=== PATIENT | male | born 1950 | race Caucasian/White ===

== ENCOUNTER → 2016-07-14 | Outpatient (REF) | payer OTHER ==
[2016-07-14 13:02] LABS: ALBUMIN 3.3 GM/DL (3.2-5.2); ALBUMIN/GLOBULIN RATIO 0.89 (1.00-1.93); ALKALINE PHOSPHATASE 83 U/L (45-117); ALT/SGPT 22 U/L (12-78); ANION GAP 9 MEQ/L (8-16); AST/SGOT 20 U/L (15-37); BILIRUBIN,TOTAL 1.2 MG/DL (0.2-1.0); BLOOD UREA NITROGEN 23 MG/DL (7-18); CALCIUM LEVEL 8.6 MG/DL (8.8-10.2); CARBON DIOXIDE LEVEL 32 MEQ/L (21-32); CHLORIDE LEVEL 102 MEQ/L (98-107); CHOLESTEROL LEVEL 122 MG/DL (<200); CREATININE FOR GFR 1.08 MG/DL (0.70-1.30); GLOMERULAR FILTRATION RATE > 60.0 (>49); GLUCOSE, FASTING 88 MG/DL (80-110); POTASSIUM SERUM 4.5 MEQ/L (3.5-5.1); SODIUM LEVEL 143 MEQ/L (136-145); TRIGLYCERIDES LEVEL 48 MG/DL (<150)
== END ==
LOC: M SFHCPLAZ 09:17
PROVIDERS: ATTEND Nurse Practitioner Family
DX: I10 Essential (primary) hypertension (principal); E78.5 Hyperlipidemia, unspecified

== ENCOUNTER → 2016-08-29 | Outpatient (CLI) | payer OTHER ==
--- NOTE | 2016-08-29 10:46 | REP ---
LEFT HAND SERIES: Four views. HISTORY: Swelling of the left hand. FINDINGS: Four views of the left hand demonstrate overall normal mineralization. There is however a fairly extensive chondrocalcinosis noted at the radiocarpal articulation and to a lesser extent, in the intercarpal articulations. This is nonspecific finding and may be seen in degenerative joint disease, calcium pyrophosphate arthropathies, and other arthropathies. There is also some chondrocalcinosis about the 1st MCP joint. IP joint osteoarthritic spurring is seen at the thumb and early spurring is seen at the 1st [facility] joint. No erosive change is seen. There is a small cyst in the middle phalanx of the long finger at the PIP joint. There are minimal spurring changes at the PIP joints of the index, long and ring finger. IMPRESSION: Osteoarthritic changes and chondrocalcinosis. No acute bony abnormality. Signed by Basim Middleton MD 08/29/2016 01:59 P
== END ==
LOC: M RAD 09:53
PROVIDERS: ATTEND Family Medicine
DX: M11.242 Other chondrocalcinosis, left hand (principal); M19.042 Primary osteoarthritis, left hand

== ENCOUNTER → 2016-09-03 | Outpatient (CLI) | payer OTHER ==
--- NOTE | 2016-09-03 15:41 | REP ---
Chest two views HISTORY: Hypertension Comparison: 11/08/2015 The 2 cm parenchymal density is present in the medial right lower lobe. The left lung is clear. The cardiac silhouette is enlarged. The pulmonary vasculature is normal in appearance. The bony structure is intact. IMPRESSION: 1. There is a 2 cm parenchymal density in the the medial right lower lobe. CT of the chest is recommended for further evaluation. 2. Cardiomegaly. Signed by Chidi Bower MD 09/03/2016 03:32 P
== END ==
LOC: M ADAMS 15:11
PROVIDERS: ATTEND Family Medicine
DX: R60.0 Localized edema (principal); I10 Essential (primary) hypertension; I51.7 Cardiomegaly

== ENCOUNTER → 2016-09-03 | Outpatient (CLI) | payer OTHER ==
--- NOTE | 2016-09-04 22:03 | ECGEPIP ---
Stationary ECG Study [facility] Test Date: 2016-09-03 Pat Name: JANNETTE GIL Department: Room: - Gender: M Manager Vehicle: [facility] : 1950 Requested By: Parish Veag Order Number: [id number] Reading MD: Elvi Méndez Measurements Intervals [place] Rate: 78 P: -7 AK: 187 QRS: -48 QRSD: 146 T: 84 QT: 394 QTc: 449 Interpretive Statements SINUS RHYTHM MARKED LEFT AXIS DEVIATION LEFT BUNDLE BRANCH BLOCK NO PRIOR Electronically Signed On 09-04-2016 22:03:44 EDT by Elvi Méndez
== END ==
LOC: M EKG 15:57
PROVIDERS: ATTEND Family Medicine
DX: I10 Essential (primary) hypertension (principal); R60.0 Localized edema

== ENCOUNTER → 2016-09-11 | Outpatient (CLI) | payer OTHER ==
[~2016-09-11] MED LIST: ISOVUE-370 76% 100ML VIAL (Q9967) As Ordered ONE
--- NOTE | 2016-09-12 08:46 | REP ---
Clinical: Possible lung nodule. Technique: Axial contrast enhanced images from the thoracic inlet to the upper abdomen using 100 ml Isovue 370 intravenous contrast material with coronal and sagittal re-formations. Findings: The bilateral lung camarena are well-aerated and clear without pulmonary parenchymal consolidation, nodule or mass lesion. The vague suspected nodule along the medial aspect of the right lower lung on x-ray corresponds to a prominent but normal right pulmonary vein. No pleural effusion/reaction or pneumothorax. Tracheobronchial tree is patent. No adenopathy. Mediastinum demonstrates normal thoracic aorta, heart and pericardium. Surrounding musculoskeletal structures are normal. Impression: No acute mediastinal or pleuroparenchymal process. The veins suspected lesion by x-ray corresponds to a normal right pulmonary vein. Signed by Colin Morton MD 09/12/2016 08:38 A
== END ==
LOC: M RAD 18:14
PROVIDERS: ATTEND Family Medicine
DX: R91.8 Other nonspecific abnormal finding of lung field (principal)
CPT/HCPCS: 71260; Q9967

== ENCOUNTER → 2016-09-15 | Outpatient (CLI) | payer OTHER ==
--- NOTE | 2016-09-15 17:20 | ECHO ---
DATE OF PROCEDURE: 09/15/2016 REFERRING PHYSICIAN: Dr. Parish Vega INDICATION: Systemic hypertension, edema. HEIGHT 70 inches WEIGHT: 240 pounds MEASUREMENTS: Left atrium: 3.4 cm Aortic root: 2.9 cm Ventricle septum: 1.16 cm Posterior wall: 1.25 cm Left ventricle diastole: 4.2 cm Aortic annulus: 2.4 cm Inferior vena cava: 1.4 cm. DOPPLER MEASUREMENTS: Aortic valve velocity: 146 cm/s LVOT velocity: 114 cm/s LVOT VTI: 23.4 cm Mitral E velocity: 83.9 cm/s, Mitral A velocity: 103 cm/s Mitral deceleration time: 204 ms Trace pulmonic regurgitation. MITRAL ANNULAR TISSUE DOPPLER: E prime septal: 7.8 cm/s A prime septal: 10.8 cm/s DESCRIPTION: Rhythm was sinus. This is a moderately technically difficult echocardiogram. No pericardial effusion. CONCLUSIONS: 1. Normal left ventricle internal dimensions. There is shelby mild concentric left ventricle hypertrophy. No regional wall motion abnormality of the left ventricle. Normal LV systolic function. Left ventricle ejection fraction (LVEF) 60% by visual loss estimate . 2. Grade 1 left ventricle (LV) diastolic dysfunction (impaired relaxation filling pattern). Moderate partial fusion of the early rapid filling phase with the atrial filling phase at 74 beats per minute. 3. Mild aortic valve sclerosis of a three-cuspid aortic valve. 4. No coarctation of the aorta by continuous wave Doppler. 5. Moderate technically difficult echocardiogram.
== END ==
LOC: M CARPUL 09:34
PROVIDERS: ATTEND Family Medicine
DX: I10 Essential (primary) hypertension (principal)

== ENCOUNTER → 2016-12-09 | Outpatient (REF) | payer OTHER ==
[2016-12-09 20:30] LABS: ALBUMIN 2.9 GM/DL (3.2-5.2); ALBUMIN/GLOBULIN RATIO 0.74 (1.00-1.93); ALKALINE PHOSPHATASE 72 U/L (45-117); ALT/SGPT 16 U/L (12-78); ANION GAP 7 MEQ/L (8-16); AST/SGOT 12 U/L (15-37); BILIRUBIN,TOTAL 0.6 MG/DL (0.2-1.0); BLOOD UREA NITROGEN 24 MG/DL (7-18); CALCIUM LEVEL 8.7 MG/DL (8.8-10.2); CARBON DIOXIDE LEVEL 30 MEQ/L (21-32); CHLORIDE LEVEL 103 MEQ/L (98-107); CREATININE FOR GFR 0.87 MG/DL (0.70-1.30); FREE T4 1.33 NG/DL (0.76-1.46); GLOMERULAR FILTRATION RATE > 60.0 (>49); GLUCOSE, FASTING 93 MG/DL (80-110); POTASSIUM SERUM 4.4 MEQ/L (3.5-5.1); SODIUM LEVEL 140 MEQ/L (136-145); TOTAL PROTEIN 6.8 GM/DL (6.4-8.2)
[2016-12-09 20:35] LABS: MEAN CORPUSCULAR HEMOGLOBIN 28.5 pg (27.0-33.0); MEAN CORPUSCULAR HGB CONC 32.4 g/dl (32.0-36.5); MEAN CORPUSCULAR VOLUME 87.9 fl (80.0-96.0); RED CELL DISTRIBUTION WIDTH 14.2 % (11.5-14.5); WHITE BLOOD COUNT 8.5 K/mm3 (4.0-10.0)
== END ==
LOC: M SFHCADAM 11:18
PROVIDERS: ATTEND Family Medicine
DX: M19.90 Unspecified osteoarthritis, unspecified site (principal)

== ENCOUNTER → 2017-04-27 | Outpatient (CLI) | payer OTHER ==
[~2017-04-27] MED LIST changes: +ASPI81TA85 PO; +ATOR1TAB21 PO; +FURO20TA2 PO; -ISOVUE-370 76% 100ML VIAL (Q9967) As Ordered ONE; +MELO15TA4 PO; +MULT1TAB10 PO; +RAMI10CA PO
[2017-04-27 18:44] LABS: ANION GAP 4 MEQ/L (8-16); BLOOD UREA NITROGEN 27 MG/DL (7-18); CALCIUM LEVEL 8.4 MG/DL (8.8-10.2); CARBON DIOXIDE LEVEL 32 MEQ/L (21-32); CHLORIDE LEVEL 108 MEQ/L (98-107); CREATININE FOR GFR 0.91 MG/DL (0.70-1.30); GLOMERULAR FILTRATION RATE > 60.0 (>49); GLUCOSE, FASTING 99 MG/DL (80-110); SODIUM LEVEL 144 MEQ/L (136-145)
[2017-04-27 19:23] LABS: MEAN CORPUSCULAR HEMOGLOBIN 28.6 pg (27.0-33.0); MEAN CORPUSCULAR HGB CONC 31.8 g/dl (32.0-36.5); PLATELET COUNT, AUTOMATED 263 10^3/uL (150-450); RED CELL DISTRIBUTION WIDTH 14.9 % (11.5-14.5); WHITE BLOOD COUNT 6.1 10^3/uL (4.0-10.0)
[2017-04-27 19:25] LABS: INR 0.94
--- NOTE | 2017-04-27 20:10 | REP ---
CHEST PA AND LATERAL: 04/27/2017. Clinical history: Cardiomegaly. Preprocedural exam. Findings: Compared to prior. There is cardiomegaly with left atrial and ventricular enlargement, similar to previous study. I do not see pulmonary edema. There is no pleural effusion or acute infiltrate. The aorta is mildly tortuous and calcified without aneurysm. Airway intact. No mediastinal or hilar mass. Bony thorax shows no acute compression deformity. Impression: 1. Cardiomegaly without pulmonary edema, pleural effusion or acute infiltrate. Left atrial and left ventricular enlargement noted similar to previous study. Signed by Juan A Hernández MD 04/28/2017 11:51 A
== END ==
LOC: M LAB 17:35
PROVIDERS: ATTEND Urology
DX: Z01.818 Encounter for other preprocedural examination (principal); N48.1 Balanitis

== ENCOUNTER → 2017-05-01 | Outpatient (REF) | payer OTHER ==
[~2017-05-01] MED LIST changes: +BACT800T5 PO; +TYLE650T35 PO
== END ==
LOC: M LABSMT 14:51
PROVIDERS: ATTEND Urology
DX: Z01.818 Encounter for other preprocedural examination (principal); N48.1 Balanitis

== ENCOUNTER 2017-05-06 10:44 | Day surgery (SDC) | payer OTHER ==
[~2017-05-06] VITALS: Ht 177.8 cm; Wt 111.6 kg
[~2017-05-06 10:44] MED LIST changes: -BACT800T5 PO; -TYLE650T35 PO
[2017-05-06] MEDS ORDERED: LR 1,000 ML IV ONE (11:00)
[2017-05-06] MEDS ORDERED: ONDANSETRON 4MG/2ML VIAL (J2405) As Ordered ONE (11:42)
[2017-05-06] MEDS ORDERED: fentaNYL 100 MCG/2 ML INJECTION (J3010) As Ordered ONE (11:42)
[2017-05-06] MEDS ORDERED: KETOROLAC 60 MG/2 ML VIAL (J1885) As Ordered ONE (11:42)
[2017-05-06] MEDS ORDERED: LIDOCAINE 2% INJ 100 MG/5 ML SDV (FOR ANES.) As Ordered ONE (11:42)
[2017-05-06] MEDS ORDERED: MIDAZOLAM INJ 2 MG/2 ML VIAL (J2250) As Ordered ONE (11:42)
[2017-05-06] MEDS ORDERED: PROPOFOL 200 MG/20 ML VIAL As Ordered ONE ×2 (11:42→13:40)
[2017-05-06] MEDS ORDERED: dexameTHASONE 4 MG/ML 1ML VIAL (J1100) As Ordered ONE ×3 (11:42→13:38)
[2017-05-06] MEDS ORDERED: BUPIVACAINE HCL 0.25% 30 ML VIAL As Ordered ONE (12:32)
[2017-05-06] MEDS ORDERED: LIDOCAINE 1% MDV 20ML VIAL As Ordered ONE (12:32)
[2017-05-06] MEDS ORDERED: BACITRACIN OINT 30GM As Ordered ONE (12:32)
[2017-05-06] MEDS ORDERED: ESMOLOL INJ 100MG/10ML VIAL As Ordered ONE (13:10)
[2017-05-06] MEDS ORDERED: METOCLOPRAMIDE INJ 10MG/2ML VIAL (J2765) As Ordered ONE (13:36)
[2017-05-06] MEDS ORDERED: TYLE650T35 PO (14:04)
[2017-05-06] MEDS ORDERED: BACT800T5 PO (14:04)
[2017-05-06] MEDS ORDERED: LR 1,000 ML IV SCH (14:30)
[2017-05-06] MEDS ORDERED: ONDANSETRON 4MG/2ML VIAL (J2405) IV PRN (14:30)
[2017-05-06] MEDS ORDERED: fentaNYL 100 MCG/2 ML INJECTION (J3010) IV PRN (14:30)
[2017-05-06] MEDS ORDERED: ACETAMINOPHEN 650MG ER TAB (TYLENOL ARTHRITIS) PO PRN (14:30)
[2017-05-06 15:30] VITALS: BP 156/77
[2017-05-06] MEDS ORDERED: BACTRIM 160MG/800MG DS TAB PO SCH (21:00)
--- NOTE | 2017-05-07 09:28 | RO ---
DATE OF PROCEDURE: 05/06/2017 PREPROCEDURE DIAGNOSIS: Penile lesion plus phimosis. POSTPROCEDURE DIAGNOSIS: Penile lesion plus phimosis. FINDINGS: Flat lesion in the glans of the penis about 1 cm in diameter plus phimosis. PROCEDURE: Circumcision plus penile punch biopsies times two. SURGEON: Alphonso Miranda MD EARLY YEARS TEACHER: None. ANESTHESIA: General. COMPLICATIONS: None. ESTIMATED BLOOD LOSS: N/A, minimal. HISTORY OF THE PRESENT ILLNESS: A 67-year-old male patient who has a persistent penile lesion about 1 cm in the glans of the penis, flat lesion and also has difficulty retracting the foreskin. For this reason, and the reason that he has recurrent balanitis, we have consented him for circumcision plus penile punch biopsy. DESCRIPTION OF PROCEDURE: In a patient under general anesthesia in supine position, after prepping and draping the area of concern, which included the entire genitalia and abdomen, we started by doing an incision 1 cm from the sulcus of the glans, circumferential incision and then 3 cm more proximal to the base, we did another circumferential incision, and we excised the foreskin between both incisions. We then fulgurated bleeding vessels and sutured back together the borders of the incisions with catgut chromic #3-0 in separate stitches. The foreskin was sent for permanent pathology analysis. We then identified the lesion in the sulcus of the glans on the right side, about 1 cm, and we did two punch biopsies at that area, sent it for permanent pathology analysis. We also closed those punch biopsies with catgut chromic #3-0. We then placed bacitracin cream on top of the wound and wrapped the penis with a Coban and prior to this, a Kerlix roll. PLAN: The patient will go home today with antibiotic and Tylenol for pain. He will followup in 5 days for removal of the Coban. He may shower in 3 days. No sex for 1 month. There were no complications.
== END 2017-05-06 15:47 | disposition home or self-care (01) ==
LOC: M SDC 10:44
PROVIDERS: ATTEND Urology
DX: N47.1 Phimosis (principal); N50.9 Disorder of male genital organs, unspecified; I10 Essential (primary) hypertension; E78.5 Hyperlipidemia, unspecified; M10.9 Gout, unspecified; G47.30 Sleep apnea, unspecified; Z79.899 Other long term (current) drug therapy; Z79.82 Long term (current) use of aspirin
CPT/HCPCS: 36415; 54100; 54161; 86850; 86900; 86901; 88304; 88305; J1100; J1885; J2250; J2405; J2765; J3010

== ENCOUNTER → 2017-10-08 | Outpatient (CLI) | payer OTHER | LOC: M SMT 10:23 | DX: Z85.528 Personal history of other malignant neoplasm of kidney (principal) ==

== ENCOUNTER → 2018-02-01 | Outpatient (CLI) | payer OTHER ==
[2018-02-01 12:56] LABS: HEMOGLOBIN 13.3 g/dl (13.5-17.5); MEAN CORPUSCULAR HEMOGLOBIN 29.6 pg (27.0-33.0); MEAN CORPUSCULAR HGB CONC 32.4 g/dl (32.0-36.5); MEAN CORPUSCULAR VOLUME 91.3 fl (80.0-96.0); PLATELET COUNT, AUTOMATED 262 10^3/uL (150-450); RED BLOOD COUNT 4.49 10^6/uL (4.30-6.10); RED CELL DISTRIBUTION WIDTH 13.3 % (11.5-14.5)
== END ==
LOC: M LAB 11:03
DX: K62.5 Hemorrhage of anus and rectum (principal)
CPT/HCPCS: 85027

== ENCOUNTER → 2018-07-05 | Outpatient (CLI) | payer OTHER ==
[~2018-07-05] MED LIST changes: +BACT800T5 PO; +GLUCAGON FOR INJ 1 MG VIAL (J1610) As Ordered ONE; +ISOVUE-370 76% 100ML VIAL (Q9967) As Ordered ONE; +MELO15TA28 PO; -MELO15TA4 PO; -RAMI10CA PO; +RAMI1CAP26 PO; +TYLE650T35 PO; +VoLumen 0.1% SUSPENSION 450ML BOTTLE As Ordered ONE
--- NOTE | 2018-07-05 20:46 | REP ---
Clinical: Abdominal pain with history of iron deficiency anemia. Technique: Contrast enhanced images from the lung bases to the pubic symphysis using 75 ml Isovue 370 intravenous contrast material with images obtained in arterial and portal venous phases of enhancement along with coronal and sagittal re-formations. Comparison: 09/06/2008 Findings: Liver includes few scattered subcentimeter hypodensities likely representing cysts. Spleen, pancreas, left adrenal gland and kidney are normal. The patient is noted to be status post right nephrectomy. Cholelithiasis noted without evidence for acute cholecystitis. The enteric system is without obstruction or obvious acute inflammatory process. Normal terminal ileum and appendix are identified in the right lower quadrant. Few scattered sigmoid diverticula noted without acute diverticulitis. Pelvis demonstrates normal bladder and age-appropriate prostate/seminal vesicles. No pelvic fluid or ascites. No adenopathy. No free air. Abdominal aorta and vasculature appears normal. Musculoskeletal structures demonstrate age-related degenerative changes. Impression: 1. Cholelithiasis. 2. Few scattered subcentimeter hypodensities likely representing small cysts. 3. Scattered sigmoid diverticula without acute diverticulitis. No further enterocolonic pathology appreciated. 4. Evidence of prior right nephrectomy for renal cell carcinoma. No evidence for recurrence, metastasis, adenopathy. Electronically Signed by Colin Morton MD 07/05/2018 08:37 P
== END ==
LOC: M RAD 08:32
PROVIDERS: ATTEND Physician Assistant Medical
DX: D50.9 Iron deficiency anemia, unspecified (principal); K62.5 Hemorrhage of anus and rectum
CPT/HCPCS: 74177; J1610; Q9967

== ENCOUNTER 2018-08-05 09:14 | Day surgery (SDC) | payer OTHER ==
[~2018-08-05] VITALS: Ht 182.9 cm; Wt 107.0 kg
[~2018-08-05 09:14] MED LIST changes: -GLUCAGON FOR INJ 1 MG VIAL (J1610) As Ordered ONE; -ISOVUE-370 76% 100ML VIAL (Q9967) As Ordered ONE; -VoLumen 0.1% SUSPENSION 450ML BOTTLE As Ordered ONE
[2018-08-05] MEDS ORDERED: NS 1,000 ML IV ONE (11:00)
[2018-08-05] MEDS ORDERED: PROPOFOL 200 MG/20 ML VIAL As Ordered ONE (11:14)
[2018-08-05] MEDS ORDERED: LIDOCAINE 2% INJ 100 MG/5 ML SDV (FOR ANES.) As Ordered ONE (11:14)
[2018-08-05] MEDS ORDERED: fentaNYL 100 MCG/2 ML INJECTION (J3010) As Ordered ONE (11:46)
--- NOTE | 2018-08-05 11:56 | ROOR ---
Patient Name: Lee Kumar Procedure Date: 08/05/2018 11:43 AM Date of : 1950 Age: 68 Room: [facility] Gender: Male Note Status: Finalized Procedure: Upper GI endoscopy Indications: Iron deficiency anemia Providers: Wally SEN MD Referring MD: Parish Vega MD Requesting Provider: Medicines: Monitored Anesthesia Care Complications: No immediate complications. Procedure: Pre-Anesthesia Assessment: - The heart rate, respiratory rate, oxygen saturations, blood pressure, adequacy of pulmonary ventilation, and response to care were monitored throughout the procedure. The Endoscope was introduced through the mouth, and advanced to the second part of duodenum. The upper GI endoscopy was accomplished without difficulty. The patient tolerated the procedure well. Findings: The examined esophagus was normal. Small Hiatal Hernia. The entire examined stomach was normal. The examined duodenum was normal. Biopsies for histology were taken with a cold forceps for evaluation of celiac disease. Impression: - Normal esophagus. - Small Hiatal Hernia. - Normal stomach. - Normal examined duodenum. Biopsied. Recommendation: - Perform a colonoscopy today. Wally Sen MD Wally SEN MD 08/05/2018 11:56:00 AM This report has been signed electronically. Number of Addenda: 0 Note Initiated On: 08/05/2018 11:43 AM Estimated Blood Loss: Estimated blood loss: none.
--- NOTE | 2018-08-05 12:35 | ROOR ---
Patient Name: Lee Kumar Procedure Date: 08/05/2018 11:44 AM Date of : 1950 Age: 68 Room: [facility] Gender: Male Note Status: Finalized Procedure: Colonoscopy Indications: Hematochezia, Iron deficiency anemia Providers: Wally SEN MD Referring MD: Parish Vega MD Requesting Provider: Medicines: Monitored Anesthesia Care Complications: No immediate complications. Procedure: Pre-Anesthesia Assessment: - The heart rate, respiratory rate, oxygen saturations, blood pressure, adequacy of pulmonary ventilation, and response to care were monitored throughout the procedure. The Colonoscope was introduced through the anus and advanced to 5 cm into the ileum. The colonoscopy was technically difficult and complex due to a redundant colon. Successful completion of the procedure was aided by changing the patient's position, using manual pressure and straightening and shortening the scope to obtain bowel loop reduction. The patient tolerated the procedure well. The quality of the bowel preparation was good. Findings: The perianal and digital rectal examinations were normal. Two sessile polyps were found in the transverse colon. The polyps were 3 to 5 mm in size. These polyps were removed with a cold snare. Resection and retrieval were complete. Internal hemorrhoids were found during retroflexion. The hemorrhoids were large. The exam was otherwise without abnormality on direct and retroflexion views. Impression: - Two 3 to 5 mm polyps in the transverse colon, removed with a cold snare. Resected and retrieved. - Moderate to large Internal hemorrhoids. - The colon examination was otherwise normal on direct and retroflexion views. Recommendation: - Repeat colonoscopy in 5 years for surveillance. Wally Sen MD Wally SEN MD 08/05/2018 12:35:14 PM This report has been signed electronically. Number of Addenda: 0 Note Initiated On: 08/05/2018 11:44 AM Estimated Blood Loss: Estimated blood loss: none.
[2018-08-05 12:55] VITALS: BP 139/73
== END 2018-08-05 13:07 | disposition home or self-care (01) ==
LOC: M OPP 09:14
PROVIDERS: ATTEND Internal Medicine Gastroenterology
DX: K92.1 Melena (principal); D50.9 Iron deficiency anemia, unspecified; Z86.010 Personal history of colon polyps; D12.3 Benign neoplasm of transverse colon; K64.8 Other hemorrhoids; K44.9 Diaphragmatic hernia without obstruction or gangrene; G47.30 Sleep apnea, unspecified; I10 Essential (primary) hypertension; E78.00 Pure hypercholesterolemia, unspecified; Z79.899 Other long term (current) drug therapy; Z85.528 Personal history of other malignant neoplasm of kidney; Z80.42 Family history of malignant neoplasm of prostate
CPT/HCPCS: 43239; 45385; 88305; J3010

== ENCOUNTER → 2018-12-15 | Outpatient (CLI) | payer OTHER ==
--- NOTE | 2018-12-17 20:54 | SLEEPCENT ---
DATE OF PROCEDURE: 12/15/2018 ORDERED BY: STEPHANIE Walsh Nocturnal polysomnography was performed for evaluation of sleep physiology in this patient with a history of snoring and nonrestorative sleep. 6 hours and 47 minutes of data were reviewed. There were 295 minutes of sleep identified. Sleep latency was normal at 25.5 minutes. Rapid eye movement (REM) latency was normal at 111.5 minutes. Sleep architecture showed fragmentation. There were three rapid eye movement (REM) cycles noted. Overall sleep efficiency was 75.4%. The patient's electrocardiogram showed a sinus rhythm with wide complexes, average heart rate 68 beats per minute. EEG showed reasonably normal waveforms for awake and sleep. There were 283 respiratory events identified of 10 seconds in duration or greater for an apnea-hypopnea index of 57.5. The events were primarily obstructive, not exclusive to sleep stage nor body posture. Arousals from respiratory events occurred 4.7 times per hour and oxygen desaturations were seen into the 70s. There was some activity in the limb leads but limb movement arousal index was only 3.5. IMPRESSION: Severe obstructive sleep apnea syndrome (G47.33). Apnea-hypopnea index 57.5. RECOMMENDATIONS: The patient should be encouraged to return to the sleep disorder center for pressure therapy. In the interval, alcohol and sedative avoidance should be practiced and caution exercised during the operation of motor vehicles.
== END ==
LOC: M SLEEP 19:06
PROVIDERS: ATTEND Nurse Practitioner Family
DX: R06.83 Snoring (principal)

== ENCOUNTER → 2019-01-06 | Outpatient (CLI) | payer OTHER ==
--- NOTE | 2019-01-12 09:18 | SLEEPCENT ---
DATE OF PROCEDURE: ORDERING PROVIDER: FLORIN Walsh, copy to Dr. Vega. INTERPRETATION: Nocturnal polysomnography was performed for the titration of pressure therapy in this patient with obstructive sleep apnea syndrome. Apnea-hypopnea index 57.5. For testing a [employer] full-face mask of medium size was used 4 cm of water pressure applied to the circuit and the lights were extinguished. 7 hours and 57 minutes of data were reviewed. There 385 minutes of sleep identified. Sleep latency was normal at 30.5 minutes. Rapid eye movement (REM) latency was short at 68 minutes. Sleep architecture was good. There were four REM cycles. Overall sleep efficiency 82.2%. The patient's electrocardiogram showed sinus rhythm with an average heart rate of 60 beats per minute. EEG showed normal waveforms for awake and sleep. Respiratory events were fully palliated with CPAP at a pressure +12. There were some persistent limb activity. Limb movement arousal index on this occasion was up from the diagnostic night of 25.7. IMPRESSION: 1. Obstructive sleep apnea syndrome (G47.33) pressure. 2. Possible periodic limb movement disorder (G47.61). Limb movement arousal index 25.7. RECOMMENDATIONS: Nightly use of pressure therapy at 12 cm of water should be sufficient to address the patient's respiratory events. If sleep symptoms persist interventions to reduce the frequency arousal from limb activity may also be helpful.
== END ==
LOC: M SLEEP 19:20
PROVIDERS: ATTEND Nurse Practitioner Family
DX: G47.33 Obstructive sleep apnea (adult) (pediatric) (principal); G47.61 Periodic limb movement disorder

== ENCOUNTER → 2019-03-07 | Outpatient (REF) | payer OTHER ==
[2019-03-07 16:43] LABS: ALBUMIN 3.2 GM/DL (3.2-5.2); ALT/SGPT 19 U/L (12-78); BILIRUBIN,TOTAL 0.7 MG/DL (0.2-1.0); BLOOD UREA NITROGEN 30 MG/DL (7-18); CALCIUM LEVEL 8.8 MG/DL (8.8-10.2); CARBON DIOXIDE LEVEL 30 MEQ/L (21-32); CHLORIDE LEVEL 107 MEQ/L (98-107); CHOLESTEROL LEVEL 130 MG/DL (<200); CHOLESTEROL RISK RATIO 2.549 (<5); CREATININE FOR GFR 1.01 MG/DL (0.70-1.30); FERRITIN 83 NG/ML (26-388); GLOMERULAR FILTRATION RATE > 60.0 (>42); GLUCOSE, FASTING 90 MG/DL (70-100); HDL CHOLESTEROL 51 MG/DL (>40); IRON (FE) 42 UG/DL (65-175); LDL CHOLESTEROL 70 MG/DL (<100); NON-HDL-C 79 MG/DL; PERCENT SATURATION 13.3 % (19.7-50.0); POTASSIUM SERUM 4.7 MEQ/L (3.5-5.1); SODIUM LEVEL 142 MEQ/L (136-145); TOTAL IRON BINDING CAPACITY 315 UG/DL (250-450); TOTAL PROTEIN 6.8 GM/DL (6.4-8.2); TRIGLYCERIDES LEVEL 43 MG/DL (<150)
[2019-03-07 16:51] LABS: HEMATOCRIT 40.4 % (42.0-52.0); HEMOGLOBIN 12.9 g/dl (13.5-17.5); MEAN CORPUSCULAR HEMOGLOBIN 30.4 pg (27.0-33.0); MEAN CORPUSCULAR HGB CONC 31.9 g/dl (32.0-36.5); MEAN CORPUSCULAR VOLUME 95.1 fl (80.0-96.0); PLATELET COUNT, AUTOMATED 248 10^3/uL (150-450); RED BLOOD COUNT 4.25 10^6/uL (4.30-6.10); WHITE BLOOD COUNT 6.5 10^3/uL (4.0-10.0)
[2019-03-07 16:53] LABS: APPEARANCE, URINE CLEAR (CLEAR); BACTERIA, URINE AUTO NEGATIVE (NEGATIVE); BILIRUBIN, URINE AUTO NEGATIVE (NEGATIVE); BLOOD, URINE BLOOD NEGATIVE (NEGATIVE); COLOR, URINE YELLOW (YELLOW); GLUCOSE, URINE (UA) AUTO NEGATIVE (NEGATIVE); KETONE, URINE AUTO NEGATIVE (NEGATIVE); LEUKOCYTE ESTERASE, URINE AUTO NEGATIVE (NEGATIVE); MUCUS, URINE SMALL (NEGATIVE); NITRITE, URINE AUTO NEGATIVE (NEGATIVE); PROTEIN, URINE AUTO NEGATIVE (NEGATIVE); RBC, URINE AUTO 0 /HPF (0-3); SPECIFIC GRAVITY URINE AUTO 1.023 (1.002-1.035); SQUAMOUS EPITHELIAL CELL UR AU 0 /HPF (0-6); UROBILINOGEN, URINE AUTO 0.2 mg/dL (0.0-2.0); WBC, URINE AUTO 0 /HPF (0-3)
== END ==
LOC: M SFHCCLAY 09:51
PROVIDERS: ATTEND Family Medicine
DX: Z12.5 Encounter for screening for malignant neoplasm of prostate (principal); Z85.528 Personal history of other malignant neoplasm of kidney; E78.5 Hyperlipidemia, unspecified; D50.9 Iron deficiency anemia, unspecified
CPT/HCPCS: 80053; 80061; 81001; 82728; 83550; 85027; 85046; 87086; G0103

== ENCOUNTER → 2019-03-23 | Outpatient (CLI) | payer OTHER ==
--- NOTE | 2019-03-23 10:35 | REP ---
RENAL ULTRASOUND: Real-time sonographic evaluation of the left kidney was performed in this patient who has had a prior right nephrectomy. The left kidney is normal in size and echotexture measuring 12.4 x 6.4 x 7.4 cm. There is no hydronephrosis. There is no evidence of renal mass. Study is somewhat limited due to bowel gas and body habitus. Incidental node of made of multiple gallstones in the gallbladder. Urinary bladder is mildly distended. A left ureteral jet is visualized with Doppler color evaluation. IMPRESSION: Unremarkable appearance of left kidney in this patient status-post right nephrectomy. Gallstones incidentally noted in the gallbladder. Electronically Signed by Federico Baugh MD 03/23/2019 06:22 P
== END ==
LOC: M RAD 09:18
PROVIDERS: ATTEND Nurse Practitioner Women's Health
DX: Z85.528 Personal history of other malignant neoplasm of kidney (principal); K80.20 Calculus of gallbladder without cholecystitis without obstruction

== ENCOUNTER → 2020-01-31 | Outpatient (REF) | payer OTHER ==
[~2020-01-31] MED LIST changes: +ACET650T61 PO; -ASPI81TA85 PO; +ASPI81TA86 PO; -TYLE650T35 PO
[2020-03-28 13:48] LABS: ALBUMIN 3.3 GM/DL (3.2-5.2); ALT/SGPT 17 U/L (12-78); BILIRUBIN,TOTAL 0.8 MG/DL (0.2-1.0); BLOOD UREA NITROGEN 24 MG/DL (7-18); CALCIUM LEVEL 8.8 MG/DL (8.8-10.2); CARBON DIOXIDE LEVEL 31 MEQ/L (21-32); CHLORIDE LEVEL 107 MEQ/L (98-107); CHOLESTEROL LEVEL 119 MG/DL (<200); CHOLESTEROL RISK RATIO 2.531 (<5); CREATININE FOR GFR 1.13 MG/DL (0.70-1.30); GLOMERULAR FILTRATION RATE > 60.0 (>42); GLUCOSE, FASTING 97 MG/DL (70-100); HDL CHOLESTEROL 47 MG/DL (>40); LDL CHOLESTEROL 61 MG/DL (<100); NON-HDL-C 72 MG/DL; SODIUM LEVEL 140 MEQ/L (136-145); TOTAL PROTEIN 6.8 GM/DL (6.4-8.2); TRIGLYCERIDES LEVEL 57 MG/DL (<150)
== END ==
LOC: M SFHCADAM 11:35
PROVIDERS: ATTEND Family Medicine
DX: I11.9 Hypertensive heart disease without heart failure (principal); E78.5 Hyperlipidemia, unspecified

== ENCOUNTER → 2020-04-11 | Outpatient (REF) | payer OTHER | LOC: M SFHCCLAY 11:11 | PROVIDERS: ATTEND Urology | DX: Z12.5 Encounter for screening for malignant neoplasm of prostate (principal) ==

== ENCOUNTER → 2020-08-01 | Outpatient (REF) | payer OTHER ==
[2020-08-01 16:44] LABS: ALBUMIN 3.6 GM/DL (3.2-5.2); ALT/SGPT 24 U/L (12-78); BLOOD UREA NITROGEN 26 MG/DL (7-18); CALCIUM LEVEL 8.7 MG/DL (8.8-10.2); CARBON DIOXIDE LEVEL 30 MEQ/L (21-32); CHLORIDE LEVEL 105 MEQ/L (98-107); CHOLESTEROL LEVEL 136 MG/DL (<200); CREATININE FOR GFR 1.06 MG/DL (0.70-1.30); GLOMERULAR FILTRATION RATE > 60.0 (>42); GLUCOSE, FASTING 105 MG/DL (70-100); HDL CHOLESTEROL 50 MG/DL (>40); LDL CHOLESTEROL 71 MG/DL (<100); NON-HDL-C 86 MG/DL; POTASSIUM SERUM 4.9 MEQ/L (3.5-5.1); SODIUM LEVEL 141 MEQ/L (136-145); TOTAL PROTEIN 6.9 GM/DL (6.4-8.2); TRIGLYCERIDES LEVEL 74 MG/DL (<150)
[2020-08-01 17:12] LABS: HEMOGLOBIN A1c 5.7 %
== END ==
LOC: M SFHCCLAY 10:46
PROVIDERS: ATTEND Family Medicine
DX: I10 Essential (primary) hypertension (principal); R73.01 Impaired fasting glucose; E78.5 Hyperlipidemia, unspecified

== ENCOUNTER → 2021-07-15 | Outpatient (REF) | payer MEDICARE ==
[2021-07-15 16:37] LABS: HEMATOCRIT 43.1 % (42.0-52.0); HEMOGLOBIN 13.6 g/dl (13.5-17.5); MEAN CORPUSCULAR HEMOGLOBIN 29.1 pg (27.0-33.0); MEAN CORPUSCULAR HGB CONC 31.6 g/dl (32.0-36.5); MEAN CORPUSCULAR VOLUME 92.3 fl (80.0-96.0); PLATELET COUNT, AUTOMATED 277 10^3/uL (150-450); RED BLOOD COUNT 4.67 10^6/uL (4.30-6.10); WHITE BLOOD COUNT 8.4 10^3/uL (4.0-10.0)
[2021-07-15 16:57] LABS: ALBUMIN 3.4 GM/DL (3.2-5.2); ALT/SGPT 20 U/L (12-78); BILIRUBIN,TOTAL 0.7 MG/DL (0.2-1.0); BLOOD UREA NITROGEN 28 MG/DL (7-18); CALCIUM LEVEL 8.8 MG/DL (8.8-10.2); CARBON DIOXIDE LEVEL 30 MEQ/L (21-32); CHLORIDE LEVEL 107 MEQ/L (98-107); CHOLESTEROL LEVEL 122 MG/DL (<200); CHOLESTEROL RISK RATIO 2.392 (<5); CREATININE FOR GFR 1.08 MG/DL (0.70-1.30); GLOMERULAR FILTRATION RATE > 60.0 (>42); GLUCOSE, FASTING 102 MG/DL (70-100); HDL CHOLESTEROL 51 MG/DL (>40); LDL CHOLESTEROL 62 MG/DL (<100); NON-HDL-C 71 MG/DL; POTASSIUM SERUM 4.9 MEQ/L (3.5-5.1); SODIUM LEVEL 141 MEQ/L (136-145); TOTAL PROTEIN 7.1 GM/DL (6.4-8.2); TRIGLYCERIDES LEVEL 45 MG/DL (<150)
[2021-07-15 17:22] LABS: HEMOGLOBIN A1c 5.7 %
== END ==
LOC: M SFHCCLAY 09:36
PROVIDERS: ATTEND Family Medicine
DX: E78.5 Hyperlipidemia, unspecified (principal); R73.01 Impaired fasting glucose; Z12.5 Encounter for screening for malignant neoplasm of prostate
CPT/HCPCS: 80053; 80061; 83036; 85027; G0103

== ENCOUNTER → 2022-02-10 | Outpatient (REF) | payer MEDICARE, OTHER ==
[2022-02-10 17:23] LABS: HEMATOCRIT 40.2 % (42.0-52.0); HEMOGLOBIN 12.5 g/dl (13.5-17.5); MEAN CORPUSCULAR HEMOGLOBIN 29.1 pg (27.0-33.0); MEAN CORPUSCULAR HGB CONC 31.1 g/dl (32.0-36.5); MEAN CORPUSCULAR VOLUME 93.5 fl (80.0-96.0); PLATELET COUNT, AUTOMATED 258 10^3/uL (150-450); WHITE BLOOD COUNT 6.9 10^3/uL (4.0-10.0)
[2022-02-10 18:29] LABS: ALBUMIN 2.9 GM/DL (3.2-5.2); ALT/SGPT 21 U/L (12-78); BILIRUBIN,TOTAL 1.1 MG/DL (0.2-1.0); BLOOD UREA NITROGEN 25 MG/DL (7-18); CALCIUM LEVEL 8.4 MG/DL (8.8-10.2); CARBON DIOXIDE LEVEL 30 MEQ/L (21-32); CHLORIDE LEVEL 105 MEQ/L (98-107); CHOLESTEROL LEVEL 125 MG/DL (<200); CREATININE FOR GFR 0.94 MG/DL (0.70-1.30); FERRITIN 89 NG/ML (26-388); GLOMERULAR FILTRATION RATE > 60.0 (>42); GLUCOSE, FASTING 99 MG/DL (70-100); HDL CHOLESTEROL 51 MG/DL (>40); IRON (FE) 54 UG/DL (65-175); LDL CHOLESTEROL 65 MG/DL (<100); NON-HDL-C 74 MG/DL; PERCENT SATURATION 20.4 % (19.7-50.0); POTASSIUM SERUM 4.5 MEQ/L (3.5-5.1); SODIUM LEVEL 138 MEQ/L (136-145); TOTAL IRON BINDING CAPACITY 265 UG/DL (250-450); TOTAL PROTEIN 6.5 GM/DL (6.4-8.2); TRIGLYCERIDES LEVEL 44 MG/DL (<150)
[2022-02-10 21:03] LABS: HEMOGLOBIN A1c 5.7 %
== END ==
LOC: M SFHCCLAY 10:42
PROVIDERS: ATTEND Family Medicine
DX: I10 Essential (primary) hypertension (principal); E78.5 Hyperlipidemia, unspecified; R73.01 Impaired fasting glucose; D50.9 Iron deficiency anemia, unspecified

== ENCOUNTER → 2022-03-28 | Outpatient (REF) | payer MEDICARE, OTHER | LOC: M SFHCDERM 13:56 | PROVIDERS: ATTEND Nurse Practitioner Family | DX: L83 Acanthosis nigricans (principal); L57.0 Actinic keratosis ==

== ENCOUNTER → 2022-07-16 | Outpatient (REF) | payer MEDICARE, OTHER ==
[2022-07-16 17:59] LABS: HEMATOCRIT 40.8 % (42.0-52.0); HEMOGLOBIN 12.6 g/dl (13.5-17.5); MEAN CORPUSCULAR HEMOGLOBIN 29.9 pg (27.0-33.0); MEAN CORPUSCULAR HGB CONC 30.9 g/dl (32.0-36.5); MEAN CORPUSCULAR VOLUME 96.9 fl (80.0-96.0); PLATELET COUNT, AUTOMATED 268 10^3/uL (150-450); RED BLOOD COUNT 4.21 10^6/uL (4.30-6.10)
[2022-07-16 18:09] LABS: ALBUMIN 3.2 G/DL (3.2-5.2); ALKALINE PHOSPHATASE 77 U/L (46-116); ALT/SGPT 19 U/L (7.0-40); AST/SGOT 22 U/L (<34); BILIRUBIN,TOTAL 0.7 MG/DL (0.3-1.2); BLOOD UREA NITROGEN 30 MG/DL (9-23); CALCIUM LEVEL 8.9 MG/DL (8.3-10.6); CARBON DIOXIDE LEVEL 32 MMOL/L (20-31); CHLORIDE LEVEL 106 MMOL/L (98-107); CHOLESTEROL LEVEL 128 MG/DL (<200); CHOLESTEROL RISK RATIO 2.31 (<5); CREATININE FOR GFR 1.04 MG/DL (0.70-1.30); GLOMERULAR FILTRATION RATE > 60.0 (>42); GLUCOSE, FASTING 76 MG/DL (74-106); HDL CHOLESTEROL 55.4 MG/DL (>40); LDL CHOLESTEROL 62.6 MG/DL (<100); NON-HDL-C 73 MG/DL; POTASSIUM SERUM 5.4 MMOL/L (3.5-5.1); SODIUM LEVEL 145 MMOL/L (136-145); TOTAL PROTEIN 6.2 G/DL (5.7-8.2); TRIGLYCERIDES LEVEL 50 MG/DL (<150)
[2022-07-16 18:13] LABS: FERRITIN 63.6 NG/ML (10.5-307.3)
[2022-07-16 18:20] LABS: HEMOGLOBIN A1c 5.2 % (4.0-6.0)
== END ==
LOC: M SFHCADAM 13:42
PROVIDERS: ATTEND Family Medicine
DX: E78.5 Hyperlipidemia, unspecified (principal); D50.9 Iron deficiency anemia, unspecified; Z12.5 Encounter for screening for malignant neoplasm of prostate; R73.01 Impaired fasting glucose
CPT/HCPCS: 80053; 80061; 82728; 83036; 85027; G0103

== ENCOUNTER → 2023-07-21 | Outpatient (REF) | payer MEDICARE, OTHER ==
[2023-07-21 19:43] LABS: HEMATOCRIT 42.9 % (42.0-52.0); HEMOGLOBIN 13.4 g/dl (13.5-17.5); MEAN CORPUSCULAR HGB CONC 31.2 g/dl (32.0-36.5); MEAN CORPUSCULAR VOLUME 96.2 fl (80.0-96.0); PLATELET COUNT, AUTOMATED 279 10^3/uL (150-450); RED BLOOD COUNT 4.46 10^6/uL (4.30-6.10); WHITE BLOOD COUNT 7.5 10^3/uL (4.0-10.0)
[2023-07-21 19:54] LABS: HEMOGLOBIN A1c 5.6 % (4.0-6.0)
[2023-07-21 20:15] LABS: PSA SCREENING 1.32 NG/ML (< 4.00)
[2023-07-21 20:23] LABS: ALBUMIN 3.1 G/DL (3.2-5.2); ALKALINE PHOSPHATASE 80 U/L (46-116); ALT/SGPT 16 U/L (7.0-40); AST/SGOT 15 U/L (<34); BILIRUBIN,TOTAL 0.8 MG/DL (0.3-1.2); BLOOD UREA NITROGEN 33 MG/DL (9-23); CALCIUM LEVEL 8.4 MG/DL (8.3-10.6); CARBON DIOXIDE LEVEL 31 MMOL/L (20-31); CHLORIDE LEVEL 106 MMOL/L (98-107); CHOLESTEROL LEVEL 122 MG/DL (<200); CHOLESTEROL RISK RATIO 2.23 (<5); CREATININE FOR GFR 0.88 MG/DL (0.70-1.30); GLOMERULAR FILTRATION RATE > 60.0 (>42); GLUCOSE, FASTING 90 MG/DL (74-106); HDL CHOLESTEROL 54.6 MG/DL (>40); NON-HDL-C 67.4 MG/DL; POTASSIUM SERUM 5.2 MMOL/L (3.5-5.1); SODIUM LEVEL 142 MMOL/L (136-145); TOTAL PROTEIN 6.5 G/DL (5.7-8.2); TRIGLYCERIDES LEVEL 47 MG/DL (<150)
== END ==
LOC: M SFHCCLAY 10:04
PROVIDERS: ATTEND Family Medicine
DX: I10 Essential (primary) hypertension (principal); E78.5 Hyperlipidemia, unspecified; R73.01 Impaired fasting glucose; Z12.5 Encounter for screening for malignant neoplasm of prostate; D50.9 Iron deficiency anemia, unspecified
CPT/HCPCS: 80053; 80061; 82728; 83036; 85027; G0103

== ENCOUNTER → 2024-01-25 | Outpatient (REF) | payer OTHER, MEDICARE ==
[~2024-01-25] MED LIST changes: +RAMI10CA64 PO; -RAMI1CAP26 PO
[2024-01-25 14:08] LABS: BASO % 0.6 % (0.0-1.0); EOS # 0.1 10^3/uL (0.0-0.5); EOS % 1.7 % (0.0-3.0); HEMATOCRIT 41.7 % (42.0-52.0); HEMOGLOBIN 13.5 g/dl (13.5-17.5); LYMPH # 1.2 10^3/uL (1.5-5.0); LYMPH % 16.9 % (24.0-44.0); MEAN CORPUSCULAR HEMOGLOBIN 30.1 pg (27.0-33.0); MEAN CORPUSCULAR HGB CONC 32.4 g/dl (32.0-36.5); MEAN CORPUSCULAR VOLUME 92.9 fl (80.0-96.0); MONO # 0.5 10^3/uL (0.0-0.8); MONO % 6.9 % (2.0-8.0); NEUTROPHILS # 5.2 10^3/uL (1.5-8.5); NEUTROPHILS % 73.5 % (36.0-66.0); PLATELET COUNT, AUTOMATED 238 10^3/uL (150-450); RED BLOOD COUNT 4.49 10^6/uL (4.30-6.10); WHITE BLOOD COUNT 7.1 10^3/uL (4.0-10.0)
[2024-01-25 14:22] LABS: HEMOGLOBIN A1c 5.6 % (4.0-6.0)
[2024-01-25 14:28] LABS: ALBUMIN 3.1 G/DL (3.2-5.2); ALKALINE PHOSPHATASE 85 U/L (46-116); ALT/SGPT 13 U/L (7.0-40); AST/SGOT 12 U/L (<34); BILIRUBIN,TOTAL 1.3 MG/DL (0.3-1.2); BLOOD UREA NITROGEN 20 MG/DL (9-23); CALCIUM LEVEL 8.9 MG/DL (8.3-10.6); CARBON DIOXIDE LEVEL 34 MMOL/L (20-31); CHLORIDE LEVEL 105 MMOL/L (98-107); CREATININE FOR GFR 0.94 MG/DL (0.70-1.30); GLOMERULAR FILTRATION RATE > 60.0 (>42); GLUCOSE, FASTING 94 MG/DL (74-106); POTASSIUM SERUM 5.1 MMOL/L (3.5-5.1); SODIUM LEVEL 138 MMOL/L (136-145); TOTAL PROTEIN 6.4 G/DL (5.7-8.2)
[2024-01-25 14:29] LABS: FERRITIN 75.9 NG/ML (10.5-307.3)
== END ==
LOC: M SFHCADAM 09:39
PROVIDERS: ATTEND Physician Assistant
DX: I10 Essential (primary) hypertension (principal); R73.01 Impaired fasting glucose; Z12.5 Encounter for screening for malignant neoplasm of prostate; Z85.528 Personal history of other malignant neoplasm of kidney; D50.9 Iron deficiency anemia, unspecified; Z90.5 Acquired absence of kidney

== ENCOUNTER → 2024-07-27 | Outpatient (REF) | payer OTHER, MEDICARE ==
[2024-07-27 11:32] LABS: BASO % 0.6 % (0.0-1.0); EOS # 0.2 10^3/uL (0.0-0.5); EOS % 2.1 % (0.0-3.0); HEMATOCRIT 39.4 % (42.0-52.0); HEMOGLOBIN 12.6 g/dl (13.5-17.5); LYMPH # 1.2 10^3/uL (1.5-5.0); LYMPH % 17.2 % (24.0-44.0); MEAN CORPUSCULAR HEMOGLOBIN 29.9 pg (27.0-33.0); MEAN CORPUSCULAR VOLUME 93.4 fl (80.0-96.0); MONO # 0.5 10^3/uL (0.0-0.8); MONO % 6.7 % (2.0-8.0); NEUTROPHILS # 5.3 10^3/uL (1.5-8.5); NEUTROPHILS % 73.1 % (36.0-66.0); PLATELET COUNT, AUTOMATED 288 10^3/uL (150-450); RED BLOOD COUNT 4.22 10^6/uL (4.30-6.10); WHITE BLOOD COUNT 7.2 10^3/uL (4.0-10.0)
[2024-07-27 12:03] LABS: ALKALINE PHOSPHATASE 80 U/L (40-129); ALT/SGPT 14 U/L (7.0-40); AST/SGOT 16 U/L (<34); BILIRUBIN,TOTAL 0.8 MG/DL (0.3-1.2); BLOOD UREA NITROGEN 29 MG/DL (9-23); CALCIUM LEVEL 8.4 MG/DL (8.3-10.6); CARBON DIOXIDE LEVEL 30 MMOL/L (20-31); CHLORIDE LEVEL 106 MMOL/L (98-107); CHOLESTEROL LEVEL 122 MG/DL (<200); CHOLESTEROL RISK RATIO 2.38 (<5); CREATININE FOR GFR 0.91 MG/DL (0.70-1.30); GLOMERULAR FILTRATION RATE > 60.0 (>42); GLUCOSE, FASTING 104 MG/DL (74-106); HDL CHOLESTEROL 51.1 MG/DL (>40); LDL CHOLESTEROL 61.9 MG/DL (<100); NON-HDL-C 70.9 MG/DL; POTASSIUM SERUM 4.8 MMOL/L (3.5-5.1); SODIUM LEVEL 144 MMOL/L (136-145); TOTAL PROTEIN 6.6 G/DL (5.7-8.2); TRIGLYCERIDES LEVEL 45 MG/DL (<150)
[2024-07-27 12:04] LABS: PSA SCREENING 1.04 NG/ML (< 4.00)
[2024-07-27 12:05] LABS: HEMOGLOBIN A1c 5.6 % (4.0-6.0)
[2024-07-27 12:06] LABS: FERRITIN 80.8 NG/ML (10.5-307.3)
== END ==
LOC: M SFHCCLAY 09:19
PROVIDERS: ATTEND Family Medicine
DX: Z12.5 Encounter for screening for malignant neoplasm of prostate (principal); I10 Essential (primary) hypertension; R73.01 Impaired fasting glucose; Z85.528 Personal history of other malignant neoplasm of kidney; D50.9 Iron deficiency anemia, unspecified; Z90.5 Acquired absence of kidney
CPT/HCPCS: 80053; 80061; 82728; 83036; 85025; G0103

== ENCOUNTER → 2024-08-03 | Outpatient (REF) | payer MEDICARE, OTHER ==
[2024-08-03 17:53] LABS: HEMATOCRIT 45.2 % (42.0-52.0); HEMOGLOBIN 14.6 g/dl (13.5-17.5); MEAN CORPUSCULAR HEMOGLOBIN 29.8 pg (27.0-33.0); MEAN CORPUSCULAR HGB CONC 32.3 g/dl (32.0-36.5); MEAN CORPUSCULAR VOLUME 92.2 fl (80.0-96.0); PLATELET COUNT, AUTOMATED 301 10^3/uL (150-450); WHITE BLOOD COUNT 7.2 10^3/uL (4.0-10.0)
[2024-08-03 18:05] LABS: PERCENT SATURATION 14.3 % (19.7-50.0)
[2024-08-03 18:06] LABS: FERRITIN 87.6 NG/ML (10.5-307.3)
[2024-08-08 16:11] LABS: FREE KAPPA LIGHT CHAINS SERUM 39.9 mg/L (3.3-19.4); FREE LAMBDA LIGHT CHAINS SERUM 29.8 mg/L (5.7-26.3); KAPPA/LAMBDA RATIO SERUM 1.34 (0.26-1.65)
== END ==
LOC: M SFHCADAM 13:52
PROVIDERS: ATTEND Family Medicine
DX: D64.9 Anemia, unspecified (principal)

== ENCOUNTER 2024-10-05 10:19 | Day surgery (SDC) | payer MEDICARE, OTHER ==
[~2024-10-05] VITALS: Ht 182.9 cm; Wt 102.5 kg
[2024-10-05] MEDS ORDERED: LIDOCAINE 2% 100MG/5ML SDV (FOR ANES.) As Ordered ONE (11:54)
[2024-10-05] MEDS ORDERED: propofoL 500 MG/50 ML VIAL As Ordered ONE (11:56)
[2024-10-05] MEDS ORDERED: fentaNYL 100 MCG/2 ML INJECTION As Ordered ONE (11:59)
[2024-10-05 13:22] VITALS: TEMP 97.7
[2024-10-05 13:40] VITALS: BP 130/63; O2SAT 96
== END 2024-10-05 14:18 | disposition home or self-care (01) ==
LOC: M OPP 10:19
PROVIDERS: ATTEND Surgery
DX: K57.30 Diverticulosis of large intestine without perforation or abscess without bleeding (principal); K64.2 Third degree hemorrhoids; Z86.0100 Personal history of colon polyps, unspecified; K26.9 Duodenal ulcer, unspecified as acute or chronic, without hemorrhage or perforation; K31.7 Polyp of stomach and duodenum; D50.9 Iron deficiency anemia, unspecified; G47.30 Sleep apnea, unspecified; Z79.899 Other long term (current) drug therapy
CPT/HCPCS: 43239; 45378; 88305; J3010

== ENCOUNTER → 2025-02-01 | Outpatient (CLI) | payer MEDICARE, OTHER | LOC: M ADAMS 10:54 | PROVIDERS: ATTEND Physician Assistant | DX: M50.30 Other cervical disc degeneration, unspecified cervical region (principal) ==